=== PATIENT | male | born 1935 | race Caucasian/White ===

== ENCOUNTER → 2024-05-09 12:23 | Outpatient (REF) | payer MEDICARE, OTHER, SELFPAY | LOC: PAVMRI 12:23 | PROVIDERS: ATTENDING PHYSICIAN Psychiatry & Neurology Neurology | DX: R53.1 Weakness (principal) | CPT/HCPCS: 72141 ==

== ENCOUNTER → 2024-07-04 13:58 | Outpatient (REF) | payer MEDICARE, OTHER, SELFPAY | LOC: PAVMRI 13:58 | PROVIDERS: ATTENDING PHYSICIAN Nurse Practitioner | DX: R26.9 Unspecified abnormalities of gait and mobility (principal); R29.898 Other symptoms and signs involving the musculoskeletal system; G62.9 Polyneuropathy, unspecified | CPT/HCPCS: 72148 ==